=== PATIENT | male | born 1970 | race Caucasian/White ===

== ENCOUNTER → 2016-08-13 | Outpatient (CLI) | payer OTHER ==
[~2016-08-13] MED LIST: ASPIRIN CHEWABL81 MG PO; BRILINTA90 MG PO; LIPITOR TAB 2020 MG PO; NITROSTAT 0.40.4 MG SL; ZESTRIL5 MG PO
== END ==
LOC: HEART 5 08-11 07:45
DX: I21.09 ST elevation (STEMI) myocardial infarction involving other coronary artery of anterior wall (principal)
CPT/HCPCS: 78452; A9502